=== PATIENT | female | born 1965 | race Caucasian/White ===

== ENCOUNTER 2018-07-12 09:32 | Emergency (ER) | payer BC ==
[2018-07-12] MEDS ORDERED: IBUPROFEN 600 MG TABLET PO ONE (09:53)
[2018-07-12] MEDS ORDERED: DIPH/PERTUSS(ACELL)/TETANUS VAC/PF 0.5 ML SYR (>=10YO) IM ONE (09:53)
--- NOTE | 2018-07-12 10:34 | RADIOLOGY REPORT (SQ) ---
EXAM DESCRIPTION: TIBIA FIBULA RIGHT COMPLETED DATE/TIME: 07/12/2018 10:24 am REASON FOR STUDY: puncture wound, distal right tibia and fibula pain pain COMPARISON: None. NUMBER OF VIEWS: Two views. TECHNIQUE: Two radiographic images acquired of the right tibia and fibula to include the knee and an kle in at least one projection. LIMITATIONS: None. FINDINGS: MINERALIZATION: Normal. BONES: No acute fracture or dislocation. No worrisome bone lesions. SOFT TISSUES: Small soft tissue defect anterior to the distal tibia and fibula. No radiopaque foreig n body. No subcutaneous gas per OTHER: No other significant finding. IMPRESSION: 1. Small soft tissue defect overlying the distal tibia and fibula. No radiopaque foreign body. 2. No acute fracture or dislocation. TECHNICAL DOCUMENTATION: JOB ID: [id number] [facility]- All Rights Reserved Reading location - IP/workstation name: [email or web address]
--- NOTE | 2018-07-12 10:43 | ER Document Report ---
HPI - HPI Time Seen by Provider: 07/12/18 09:48 Pain Level: 2 Notes: Patient is a 52-year-old female who presents with chief complaint of puncture wound to her right guillaume. She states that last night she was dancing outside when she thinks that the corner of a wooden table punctured her leg. She reports that her tetanus is not up-to-date. Past Medical History - General Information source: Patient - Social History Smoking Status: Current Every Day Smoker Frequency of alcohol use: Social Drug Abuse: Marijuana Family History: Reviewed & Not Pertinent Neurological Medical History: Reports: Hx Seizures Vertical Provider Document - CONSTITUTIONAL Notes: PHYSICAL EXAMINATION: GENERAL: Well-appearing, well-nourished and in no acute distress. HEAD: Atraumatic, normocephalic. EYES: Pupils equal round extraocular movements intact, conjunctiva are normal. ENT: Nares patent NECK: Normal range of motion LUNGS: No respiratory distress Musculoskeletal: Normal range of motion NEUROLOGICAL: Normal speech, normal gait. PSYCH: Normal mood, normal affect. SKIN: Warm, Dry, normal turgor, no rashes or lesions noted. Puncture wound noted over right guillaume on the anterior surface. - INFECTION CONTROL TRAVEL OUTSIDE OF THE [place] IN LAST 30 DAYS: No Course - Re-evaluation Re-evalutation: X-rays negative for any fracture or dislocation. Patient's tetanus updated. Xeroform dressing placed. Patient given wound care instructions. Patient placed on cephalexin prophylactically. - Vital Signs Vital signs: Temp Pulse Resp BP Pulse Ox 98.5 F 97 16 127/67 H 96 07/12/18 09:39 07/12/18 09:39 07/12/18 09:39 07/12/18 09:39 07/12/18 09:39 Discharge - Discharge Clinical Impression: Puncture wound, Immunization, tetanus-diphtheria Condition: Stable Disposition: HOME, SELF-CARE Additional Instructions: Puncture Wound You have a puncture wound. Because these wounds often penetrate deeply beneath the skin, you must observe them carefully for complications. The wound has been examined for retained foreign material and for damage to tendons and nerves. The area should be rested and elevated for 24 hours. Then you can use the injured part -- if moving it is painfree. Punctures of the hand or foot may require splinting or crutches. The dressing should be changed daily until the wound is healed. Watch for signs of infection. Call the doctor immediately if redness, swelling, warmth, increasing pain, or wound drainage occur. If you develop numbness, persistent bleeding, or inability to move the injured area, please return for prompt re-evaluation. Tetanus Immunization Given You have been given an immunization against tetanus. Please record this in your records. In general, a booster is needed only once every 10 years. The tetanus shot protects against tetanus or "lockjaw," which is a complication of certain wound infections (the tetanus shot cannot protect against the actual infection). The immunization site may become warm and red due to local reaction. If this occurs, apply warm compresses and take aspirin or ibuprofen to reduce inflammation and discomfort. Return for evaluation if the reaction becomes severe. The x-ray taken today does not show any fracture or dislocation. Please leave the dressing that we put on in place for 24 hours. After that please remove the dressing, wash the area with mild soap and water twice daily. Then apply bacitracin ointment or a triple antibiotic to the area twice a day and keep a clean dressing on it. Take the antibiotics as prescribed. Your tetanus was updated today. Please follow-up with your primary care provider for wound recheck in the next 2-3 days. Return to the emergency department immediately if you to experience increasing redness, swelling, warmth, increasing pain or increased drainage as outlined above. Prescriptions: Cephalexin [Cephalexin 500 MG Tablet] 1 tab PO QID #28 tablet
[2018-07-12 10:51] VITALS: BP 122/71
== END 2018-07-12 10:51 | disposition home or self-care (01) ==
LOC: ER 09:32
DX: S81.831A Puncture wound without foreign body, right lower leg, initial encounter (principal); X58.XXXA Exposure to other specified factors, initial encounter; F17.200 Nicotine dependence, unspecified, uncomplicated; F12.10 Cannabis abuse, uncomplicated; Z23 Encounter for immunization
CPT/HCPCS: 90471; 90715; 99283